=== PATIENT | female | born 1945 | race Caucasian/White ===

== ENCOUNTER 2018-10-29 07:16 | Emergency (ER) | payer MEDICARE ==
[2018-10-29] MEDS ORDERED: Rabies Vaccine Human 2.5 UNITS VIAL IM ONE (08:00)
== END 2018-10-29 08:42 | disposition home or self-care (01) ==
LOC: ER/OP 07:16 → EDSTATUS 14:28
DX: Z23 Encounter for immunization (principal); I10 Essential (primary) hypertension; E78.00 Pure hypercholesterolemia, unspecified
CPT/HCPCS: 90471; 90675